=== PATIENT | male | born 1945 | race Caucasian/White ===

== ENCOUNTER → 2019-05-06 | Outpatient (CLI) | payer MEDICARE ==
[~2019-05-06] MED LIST: ADALAT CC60 MG PO; ARIXTRA SUBQ; ARTIFICIAL TEA1 EACH OP; ASPIRIN EC325 M1 PO; ASPIRIN325 PO; CIPROFLOXACIN500 M1; COLACE100 MG PO; DYAZIDE; EYE; FLAGYL375 MG; GLUCOPHAGE500 MG PO; HYDROCHLOROTHIA50 MG PO; LOTENSIN20 MG PO; METAMUCIL PAC1 UDPK1 PO; MOM PO; NUVIGIL PO; OMEPRAZOLE 20 M20 M1 PO; OXYIR 5 MG CAPSU5 M1 PO; PERCOCET 5-3251 EACH PO; PREDNISONE 20 M20 M1 PO; PRILOSEC 20 MG20 MG PO; TOPROL XL50 MG; VITAMIN E400 UNI6 PO
== END ==
LOC: M.ULTRA 12:46
DX: M79.604 Pain in right leg (principal); M79.605 Pain in left leg; E11.51 Type 2 diabetes mellitus with diabetic peripheral angiopathy without gangrene; R29.898 Other symptoms and signs involving the musculoskeletal system; Z79.899 Other long term (current) drug therapy

== ENCOUNTER 2020-11-29 10:58 | Emergency (ER) | payer MEDICARE ==
[~2020-11-29] VITALS: Ht 170.2 cm; Wt 85.7 kg
[2020-11-29] MEDS ORDERED: COZAAR 25 MG TA25 M2 PO (11:05)
[2020-11-29] MEDS ORDERED: XARELTO20 MG PO (11:05)
[2020-11-29] MEDS ORDERED: HYDROCHLOROTH12.5 M2 PO (11:06)
[2020-11-29] MEDS ORDERED: CARVEDILOL12.5 MG PO (11:06)
[2020-11-29] MEDS ORDERED: METFORMIN HCL500 M3 PO (11:06)
[2020-11-29] MEDS ORDERED: OMEPRAZOLE 20 M20 M1 PO (11:06)
[2020-11-29] MEDS ORDERED: NORVASC10 MG PO (11:06)
[2020-11-29] MEDS ORDERED: JARDIANCE10 MG PO (11:07)
[2020-11-29 14:15] LABS: HEMATOCRIT 49.1 % (42.0-52.0); HEMOGLOBIN 17.4 gm/dL (14.0-18.0); MCH 32.8 pg (26.0-34.0); MCHC 35.5 g/dL (28.0-37.0); MCV 92.6 fL (80.0-100.0); MPV 8.5 fl. (7.2-11.1); RBC 5.3 mil/uL (4.50-6.00); RDW-CV 13.6 % (10.5-14.5); WBC 6.6 thou/uL (4.0-11.0)
[2020-11-29 14:22] LABS: CALCIUM 10.2 mg/dL (8.5-10.1); POTASSIUM 4.1 mmol/L (3.5-5.1)
[2020-11-29 14:27] LABS: ALBUMIN 4.8 g/dL (3.4-5.0); TOTAL BILIRUBIN 0.6 mg/dL (<0.1-1.0); TOTAL PROTEIN 9.2 g/dL (6.4-8.2)
[2020-11-29 14:53] VITALS: BP 148/84
--- NOTE | 2020-11-29 16:12 | EKG ---
[place] [address] ELECTROCARDIOGRAM REPORT Name: MOY ORONA Room: [facility]#: [id number] Admission: 11/29/20 Attend Phys: Discharge: 11/29/20 Date of : 47 Date of Service: 11/29/20 1354 Report #: [id number] THIS REPORT FOR: //name// [facility] ED Test Date: 2020-11-29 Test Time: 13:54:44 Pat Name: MOY ORONA Department: Room: Gender: Vehicle Safety Inspector: : [id number] Requested By: Phuc Fisher Order Number: [id number] MD: Dave Eduardo Measurements Intervals Wilder Rate: 69 P: 41 [place]: 183 QRS: -40 QRSD: 148 T: -9 QT: 431 QTc: 462 Interpretive Statements Sinus rhythm RBBB and LAFB Compared to ECG 06/04/2013 23:03:22 Left anterior fascicular block now present Right bundle-branch block now present Incomplete right bundle-branch block no longer present Left ventricular hypertrophy no longer present Electronically Signed On 11-29-2020 16:12:26 CDT by Dave Eduardo [email or web address] <ELECTRONICALLY SIGNED> By: Dave Eduardo MD, [facility] 11/29/20 1612 1354 1354 Dave Eduardo MD, [facility] /EPI
== END 2020-11-29 14:53 | disposition home or self-care (01) ==
LOC: M.ERS 10:58
PROVIDERS: Emergency Medicine Emergency Medical Services
DX: I11.0 Hypertensive heart disease with heart failure (principal); Z79.84 Long term (current) use of oral hypoglycemic drugs; Z79.2 Long term (current) use of antibiotics